=== PATIENT | male | born 1995 | race Caucasian/White ===

== ENCOUNTER 2020-11-27 16:28 | Emergency (ER) | payer OTHER ==
[2020-11-27] MEDS ORDERED: SODIUM CHLORIDE 0.9% 1,000 ML IV STA (16:50)
[2020-11-27 17:02] LABS: BASOPHILS % (AUTO) 0.6 %; EOSINOPHILS # (AUTO) 0.1 10^3/uL (0.0-0.7); EOSINOPHILS % (AUTO) 0.8 %; HCT - HEMATOCRIT 43.2 % (42.0-52.0); HGB - HEMOGLOBIN 14.9 g/dL (14.0-18.0); LYMPHOCYTES # (AUTO) 2.1 10^3/uL (1.5-3.5); LYMPHOCYTES % (AUTO) 32.1 %; MEAN CORPUSCULAR HEMOGLOBIN 30.5 pg (27.0-31.0); MEAN CORPUSCULAR HGB CONC 34.5 g/dL (32.0-36.0); MEAN CORPUSCULAR VOLUME 88.3 fL (80.0-94.0); MEAN PLATELET VOLUME 8.6 fL (7.4-11.4); MONOCYTES # (AUTO) 0.5 10^3/uL (0.0-1.0); MONOCYTES % (AUTO) 8.2 %; NEUTROPHILS # (AUTO) 3.7 10^3/uL (1.5-6.6); NEUTROPHILS % (AUTO) 58.1 %; PLT - PLATELET COUNT 177 10^3/uL (130-450); RED BLOOD COUNT 4.89 10^6/uL (4.70-6.10); RED CELL DISTRIBUTION WIDTH 11.6 % (12.0-15.0); WHITE BLOOD COUNT 6.4 x10^3/uL (4.8-10.8)
[2020-11-27 17:15] LABS: ALBUMIN 4.7 g/dL (3.2-5.5); ALBUMIN/GLOBULIN RATIO 1.4 (1.0-2.2); BILIRUBIN,TOTAL 0.7 mg/dL (0.2-1.0); CALCIUM 9.5 mg/dL (8.5-10.3); CREATININE 1.1 mg/dL (0.6-1.2); POTASSIUM 3.5 mmol/L (3.5-5.0)
--- NOTE | 2020-11-27 17:38 | ED Physician Documentation ---
History of Present Illness - Stated complaint Stated Complaint: NAUSEA/VILLAVICENCIO - Chief complaint Chief Complaint: General - History obtained from History obtained from: Patient - History of Present Illness Timing: Today Pain level max: 2 Pain level now: 0 - Additonal information Additional information: Patient is a 25-year-old male who presents to the emergency department stating that he had a slight head pressure yesterday after a hike. Rated as a 1-2 out of 10. Resolved on its own. He states today he was over at his aunt's house when he felt a slight frontal head pressure again, 1-2 out of 10, and felt like he was "out of it". This lasted for a few seconds and then resolved. He states he feels normal now. No other symptoms currently. No nausea or vomiting. No head injury. No numbness or tingling. No focal neurological deficits. Patient is on lisinopril and hydrochlorothiazide at home Review of Systems Ten Systems: 10 systems reviewed and negative Constitutional: denies: Fever, Chills Eyes: denies: Loss of vision, Decreased vision, Photophobia Ears: denies: Ear pain Nose: denies: Rhinorrhea / runny nose, Congestion Throat: denies: Sore throat Cardiac: denies: Chest pain / pressure, Palpitations Respiratory: denies: Dyspnea, Cough GI: denies: Abdominal Pain, Nausea, Vomiting, Diarrhea : denies: Dysuria, Frequency, Hesitancy Skin: denies: Rash Musculoskeletal: denies: Neck pain, Back pain Neurologic: denies: Focal weakness, Numbness, Seizure, Head injury, LOC PD PAST MEDICAL HISTORY - Past Medical History Cardiovascular: Hypertension - Present Medications Home Medications: Ambulatory Orders Medication Instructions Recorded Confirmed Hydrochlorothiazide 12.5 mg PO DAILY 11/27/20 11/27/20 Lisinopril [Prinivil] 10 mg PO DAILY 11/27/20 11/27/20 - Allergies Allergies/Adverse Reactions: Allergies Allergy/AdvReac Type Severity Reaction Status Date / Time No Known Drug Allergies Allergy Verified 11/27/20 16:37 - Social History Does the pt smoke?: No Smoking Status: Never smoker PD ED PE NORMAL - Vitals Vital signs reviewed: Yes - General General: Alert and oriented X 3, No acute distress, Well developed/nourished - HEENT HEENT: Atraumatic, PERRL, EOMI, Ears normal, Moist mucous membranes - Neck Neck: Supple, no meningeal sign - Cardiac Cardiac: RRR, Strong equal pulses - Respiratory Respiratory: No respiratory distress, Clear bilaterally - Abdomen Abdomen: Soft, Non tender, Non distended - Derm Derm: Warm and dry - Extremities Extremities: No edema - Neuro Neuro: Alert and oriented X 3, 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 NIH stroke scale of 0.) Eye Opening: Spontaneous Motor: Obeys Commands Verbal: Oriented GCS Score: 15 - Psych Psych: Normal mood, Normal affect Results - Vitals Vitals: Vital Signs - 24 hr 11/27/20 11/27/20 16:38 17:14 Temperature 36.6 C Heart Rate 57 L 95 Respiratory 16 16 Rate Blood Pressure 177/83 H 146/82 H O2 Saturation 97 100 Oxygen O2 Source Room air - Labs Labs: Laboratory Tests 11/27/20 11/27/20 16:56 16:56 WBC 6.4 RBC 4.89 Hgb 14.9 Hct 43.2 MCV 88.3 MCH 30.5 MCHC 34.5 RDW 11.6 L Plt Count 177 MPV 8.6 Neut # (Auto) 3.7 Lymph # (Auto) 2.1 [place] # (Auto) 0.5 Eos # (Auto) 0.1 Baso # (Auto) 0.0 Absolute Nucleated RBC 0.00 Nucleated RBC % 0.0 Sodium 136 Potassium 3.5 Chloride 98 L Carbon Dioxide 27 Anion Gap 11.0 BUN 15 Creatinine 1.1 Estimated GFR (MDRD) 80 L Glucose 101 H Calcium 9.5 Total Bilirubin 0.7 AST 34 ALT 51 Alkaline Phosphatase 63 Total Protein 8.0 Albumin 4.7 Globulin 3.3 Albumin/Globulin Ratio 1.4 PD MEDICAL DECISION MAKING - ED course Complexity details: reviewed results, re-evaluated patient, considered differential, d/w patient ED course: 25-year-old male presents to the emergency department with mild head pressure earlier today and yesterday. A few seconds of confusion today as well. Otherwise asymptomatic. Asymptomatic here. Normal neurological exam. Normal sinus rhythm on telemetry. No acute laboratory findings. Does feel better after IV fluids. Unclear etiology. Blood pressure decreased on its own. We will have him follow-up with his doctor for further care. No evidence of subarachnoid hemorrhage, tumor, mass. Patient counseled regarding signs and symptoms for which I believe and urgent re-evaluation would be necessary. Patient with good understanding of and agreement to plan and is comfortable going home at this time This document was made in part using voice recognition software. While efforts are made to proofread this document, sound alike and grammatical errors may occur. Departure - Departure Disposition: 01 Home, Self Care Clinical Impression: Headache Qualifiers: Headache type: unspecified Headache chronicity pattern: unspecified pattern Intractability: not intractable Qualified Code(s): R51.9 - Headache, unspecified Hypertension Qualifiers: Hypertension type: unspecified Qualified Code(s): I10 - Essential (primary) hypertension Condition: Good Instructions: ED Cephalgia Unspecified, ED HTN Established Follow-Up: Provider,Other [Primary Care Provider] - Comments: Follow-up with your doctor within the next week. Return if you worsen. Keep a log of your blood pressures at home, take this once a day and follow-up with your doctor to adjust your medications.
[2020-11-27 17:48] VITALS: BP 110/59
== END 2020-11-27 17:48 | disposition home or self-care (01) ==
LOC: ED 16:28
DX: R51.9 Headache, unspecified (principal); R41.0 Disorientation, unspecified; I10 Essential (primary) hypertension
CPT/HCPCS: 36415; 80053; 85025; 96360; 99284